=== PATIENT | female | born 1995 | race Caucasian/White ===

== ENCOUNTER 2024-06-15 19:39 | Emergency (ER) | payer OTHER, SELFPAY ==
[2024-06-15 20:28] VITALS: BP 124/75; PULSE 60; RESP 20; TEMP 36.9; O2SAT 99; BMI 30.1
[2024-06-15 20:31] VITALS: BP 111/53; PULSE 59; RESP 19; O2SAT 100
--- NOTE | 2024-06-15 20:31 | PC.NURSE ---
Pt states that she uses [facility] daily. Skin pink warm and dry Resp full and easy Speech clear and appropriate
[2024-06-15 21:15] LABS: Basophils % 0.3 % (0.1-2.0); Eosinophils % 0.5 % (0.1-12.0); Hematocrit 37.8 % (37.0-47.0); Hemoglobin 13.2 g/dL (12.2-16.2); Lymphocytes # 1.9 K/mm3 (0.7-4.5); Lymphocytes % 24.9 % (10-50); Mean Corpuscular HGB Conc 34.9 g/dL (31.8-35.4); Mean Corpuscular Hemoglobin 30.7 pg (27.0-31.2); Mean Corpuscular Volume 87.9 fl (81-99); Monocytes # 0.4 K/mm3 (0.1-1.0); Monocytes % 4.7 % (1.7-9.3); Neutrophils # 5.3 K/mm3 (1.8-7.8); Neutrophils % 69.3 % (37.0-80.0); Platelet Count 308 K/mm3 (142-424); Red Cell Distribution Width 11.5 % (11.5-17.5); White Blood Count 7.6 K/mm3 (4.8-10.8)
[2024-06-15 21:23] LABS: Albumin Level 4.6 g/dl (3.5-5.0); Chloride 101 mmol/L (98-107); Potassium 4.2 mmoL/L (3.5-5.1); Sodium 132 mmol/L (136-145)
[2024-06-15 21:26] LABS: Alanine Aminotransferase 18 U/L (12-78); Albumin/Globulin Ratio 1.9 (1.1-1.8); Alkaline Phosphatase 50 U/L (38-126); Anion Gap 14.2 mEq/L (5-15); Aspartate Amino Transferase 25 U/L (14-36); Bilirubin,Total 0.4 mg/dl (0.2-1.3); Blood Urea Nitrogen 6 mg/dl (7-17); Calcium 9.5 mg/dl (8.4-10.2); Carbon Dioxide 21 mmol/L (22.0-30.0); Creatinine Clearance Estimated 143 mL/min (50-200); Estimated Glomerular Filt Rate 98 ml/min (>60); GFR (African American) 119 ML/MIN (>60); Globulin 2.4 g/dL (1.3-3.2); Glucose 88 mg/dl (74-100)
--- NOTE | 2024-06-15 21:28 | HMH.EDGENADL ---
Discharge Plan Disposition Patient Disposition: Home, Self-Care Referrals Follow up/Referrals: Provider,Referral, MD [Primary Care Provider] - See instructions Activity Restrictions/Add. Instructions Additional Instructions/Restrictions: You were evaluated in the ER and are appropriate for discharge at this time. Please make an appointment with OB for reevaluation on Tuesday or Tuesday. Call [phone] Martinez. Drink plenty of water. Monitor your bleeding. Return to the ER with new, worsening, or otherwise concerning symptoms. Clinical Impressions Clinical Impression: Cyst of right ovary, Intrauterine , Subchorionic bleed Print Language Print Language: Tristanian Discharge ED Provider: Wilfredo Dominguez Adult HPI <Suyapa Moncada ([facility]), DISTILLER - Last Filed: 06/15/24 23:13> General Chief complaint: Vaginal Bleeding Stated complaint: preg-unknown how far along, cramping/bleeding Time Seen by Provider: 06/15/24 20:51 Mode of Arrival: Ambulatory Source of Information: Patient Limitations: No Limitations Description of Symptoms (Recalled from ER Triage Doc. by RN): Pt states she had positive test at home Today began with abdominal cramping and spotting. History of Present Illness HPI narrative: 28-year-old female presents for abdominal cramping, pressure denies tenderness and spotting for 2 days. Patient states she took a test about 2 weeks ago that was positive. Patient's last. Was May 24 and it was regular has not missed any.'s. She has an appointment on the with Dr. Matrinez. Related Data Allergies Allergy/AdvReac Type Severity Reaction Status Date / Time Unable to Assess Allergy Verified 06/07/24 10:21 PFSH <Suyapa Moncada ([facility]), DISTILLER - Last Filed: 06/15/24 23:13> [facility] Disclaimer: The information contained in this section may have been updated after the patient was seen, as this information can be updated by other users. Social History (Updated 06/15/24 @ 23:13 by Suyapa Moncada ([facility]), DISTILLER) Smoking Status: Never smoker alcohol intake: never current occupational status: employed Travel in the last 8 weeks: None Have you lived/traveled outside US in past 30 days?: No Contact w/someone who lives/traveled outside US past 30 days?: No Exposure to someone with infectious disease in past 14 days?: No Do you have a fever (greater than 100.4 F or 38 C)?: No Have you tested positive for COVID-19: No Exposed to someone with COVID-19 in past 14 days?: No Do you have a sore throat?: No Do you have a cough?: No Do you have any weakness?: No Do you have any diarrhea?: No Are you experiencing any unusual bleeding?: No Do you have any muscle aches/pain?: No Do you have any abdominal pain?: Yes Are you experiencing loss of taste or smell?: No <Suyapa Moncada ([facility]), DISTILLER - Last Filed: 06/15/24 23:13> ROS Obtained: Yes Systems reviewed as appropriate & no additional complaints except as documented Physical Exam <Suyapa Moncada ([facility]), DISTILLER - Last Filed: 06/15/24 23:13> General General appearance: alert and in no apparent distress Eye Eye exam: Present normal appearance Respiratory Respiratory exam: Present normal lung sounds bilaterally Cardiovascular Cardiovascular exam: Present regular rate and normal rhythm Abdominal Exam Abdominal exam: Present soft and normal bowel sounds; Absent tenderness Neurological Exam Neurological exam: Present alert and oriented X3 Skin Skin exam: Present warm and intact Medical Decision Making <Suyapa Moncada ([facility]), DISTILLER - Last Filed: 06/15/24 23:13> Medical Records Medical records reviewed: Yes I reviewed the patient's medical records. Screening: Per USPSTF and CDC recommendations, given the prevalence of disease in our region, it is our hospital?s policy to screen for HIV and viral Hepatitis for all patients aged 18 and over and those with ongoing risk factors. Shayan Inquiry Pt receiving controlled substance: No Vital Signs: 06/15/24 20:28 06/15/24 20:31 Temperature 98.4 F Temperature Source Oral Pulse Rate 59 L Pulse Rate [Right Brachial] 60 Respiratory Rate 20 19 Blood Pressure 111/53 L Blood Pressure [Right Arm] 124/75 Blood Pressure Mean [Right Arm] 91 Blood Pressure Source Automatic Cuff Blood Pressure Source [Right Arm] Automatic Cuff Blood Pressure Position Sitting 02 Sat by Pulse Oximetry 99 100 Oxygen Delivery Method Room Air Room Air Lab Data Lab results reviewed: Yes I reviewed the patient's lab results. Lab Results 06/15/24 21:06: WBC 7.6, RBC 4.30, Hgb 13.2, Hct 37.8, MCV 87.9, MCH 30.7, MCHC 34.9, RDW 11.5, Plt Count 308, MPV 9.0, Neut % (Auto) 69.3, Lymph % (Auto) 24.9, [place] % (Auto) 4.7, Eos % (Auto) 0.5, Baso % (Auto) 0.3, Neut # (Auto) 5.3, Lymph # (Auto) 1.9, [place] # (Auto) 0.4, Eos # (Auto) 0.0, Baso # (Auto) 0.0, Sodium 132 L, Potassium 4.2, Chloride 101, Carbon Dioxide 21 L, Anion Gap 14.2, BUN 6 L, Creatinine 0.70, Estimated Creat Clear 143, Estimated GFR 98, Est GFR ( Amer) 119, Glucose 88, Calcium 9.5, Total Bilirubin 0.4, AST 25, ALT 18, Alkaline Phosphatase 50, Total Protein 7.0, Albumin 4.6, Globulin 2.4, Albumin/Globulin Ratio 1.9 H, HCG, Quant [id number] H, Blood Type A Negative 06/16/24 00:05: Urine Color Yellow, Urine Appearance Clear, Urine pH 6.5, Ur Specific [place] 1.010, Urine Protein Negative, Urine Glucose (UA) Negative, Urine Ketones Negative, Urine Blood Negative, Urine Nitrate Negative, Urine Bilirubin Negative, Urine Urobilinogen 0.2, Ur Leukocyte Esterase 1+ A 06/15/24 21:06 06/15/24 21:06 Orders (Tests/Meds): ED MEDICATIONS Discontinued Medications Generic Name Dose Route Start Last Admin Trade Name Freq PRN Reason Stop Dose Admin Rho Immune Globulin 300 mcg 06/15/24 23:08 06/16/24 00:00 Rho(D) Immune Globulin 1,500 Unit (300mcg) Syringe IM 06/15/24 23:09 300 mcg ONCE ONE Administration ORDERS Category Date Time Status ABO/RH Type Stat BBK 06/15/24 21:06 Completed Consult Wheelchair Van Operator First Responder [CONS] Routine Cons 06/15/24 21:44 Active Complete Blood Count Auto Diff Stat Lab 06/15/24 21:06 Completed Comprehensive Metabolic Panel Stat Lab 06/15/24 21:06 Completed HCG,Quantitative Stat Lab 06/15/24 21:06 Completed HIV (1&2) Antibody Rapid Stat Lab 06/15/24 20:31 Ordered Hep C Ab with Reflex to RNA Stat Lab 06/15/24 20:31 Ordered UA [Urinalysis and Microscopic] Stat Lab 06/16/24 00:05 Results Urine Culture Stat Micro 06/16/24 00:05 Received US OB transvaginal Stat Ultrasound 06/15/24 22:15 Completed Medical Decision Narrative: In summary patient is a 28-year-old female who presents to the emergency department for evaluation of abdominal cramping and spotting for 2 days. Patient is hemodynamically stable upon arrival, afebrile. Unremarkable physical exam. Differential diagnosis includes ectopic , spontaneous , threatened miscarriage. Initial workup will be conducted with labs, ultrasound. Initial inventions include labs, ultrasound. Initial workup reviewed by md labs and ultrasound. Viable fetus 7 weeks 5 days.... Upon repeat evaluation [patient had except for resolution of symptoms, had persistent pain for which additional interventions were conducted (describe interventions), tolerated p.o., was ambulatory, etc.]. Given this [patient was appropriate for discharge at this time and will be discharged with a prescription for? This case was discussed with hospital medicine regarding management? They will meet the patient to their service for continued evaluation at this time? Etc.] <Yasmin Pedersen, DO - Last Filed: 06/15/24 23:32> Vital Signs: 06/15/24 20:28 06/15/24 20:31 Temperature 98.4 F Temperature Source Oral Pulse Rate 59 L Pulse Rate [Right Brachial] 60 Respiratory Rate 20 19 Blood Pressure 111/53 L Blood Pressure [Right Arm] 124/75 Blood Pressure Mean [Right Arm] 91 Blood Pressure Source Automatic Cuff Blood Pressure Source [Right Arm] Automatic Cuff Blood Pressure Position Sitting 02 Sat by Pulse Oximetry 99 100 Oxygen Delivery Method Room Air Room Air Lab Data Lab Results 06/15/24 21:06: WBC 7.6, RBC 4.30, Hgb 13.2, Hct 37.8, MCV 87.9, MCH 30.7, MCHC 34.9, RDW 11.5, Plt Count 308, MPV 9.0, Neut % (Auto) 69.3, Lymph % (Auto) 24.9, [place] % (Auto) 4.7, Eos % (Auto) 0.5, Baso % (Auto) 0.3, Neut # (Auto) 5.3, Lymph # (Auto) 1.9, [place] # (Auto) 0.4, Eos # (Auto) 0.0, Baso # (Auto) 0.0, Sodium 132 L, Potassium 4.2, Chloride 101, Carbon Dioxide 21 L, Anion Gap 14.2, BUN 6 L, Creatinine 0.70, Estimated Creat Clear 143, Estimated GFR 98, Est GFR ( Amer) 119, Glucose 88, Calcium 9.5, Total Bilirubin 0.4, AST 25, ALT 18, Alkaline Phosphatase 50, Total Protein 7.0, Albumin 4.6, Globulin 2.4, Albumin/Globulin Ratio 1.9 H, HCG, Quant [id number] H, Blood Type A Negative 06/16/24 00:05: Urine Color Yellow, Urine Appearance Clear, Urine pH 6.5, Ur Specific [place] 1.010, Urine Protein Negative, Urine Glucose (UA) Negative, Urine Ketones Negative, Urine Blood Negative, Urine Nitrate Negative, Urine Bilirubin Negative, Urine Urobilinogen 0.2, Ur Leukocyte Esterase 1+ A Orders (Tests/Meds): ED MEDICATIONS Discontinued Medications Generic Name Dose Route Start Last Admin Trade Name Freq PRN Reason Stop Dose Admin Rho Immune Globulin 300 mcg 06/15/24 23:08 06/16/24 00:00 Rho(D) Immune Globulin 1,500 Unit (300mcg) Syringe IM 06/15/24 23:09 300 mcg ONCE ONE Administration ORDERS Category Date Time Status ABO/RH Type Stat BBK 06/15/24 21:06 Completed Consult Wheelchair Van Operator First Responder [CONS] Routine Cons 06/15/24 21:44 Active Complete Blood Count Auto Diff Stat Lab 06/15/24 21:06 Completed Comprehensive Metabolic Panel Stat Lab 06/15/24 21:06 Completed HCG,Quantitative Stat Lab 06/15/24 21:06 Completed HIV (1&2) Antibody Rapid Stat Lab 06/15/24 20:31 Ordered Hep C Ab with Reflex to RNA Stat Lab 06/15/24 20:31 Ordered UA [Urinalysis and Microscopic] Stat Lab 06/16/24 00:05 Results Urine Culture Stat Micro 06/16/24 00:05 Received US OB transvaginal Stat Ultrasound 06/15/24 22:15 Completed Medical Decision Narrative: In summary patient is a 28-year-old female who presents to the emergency department for evaluation of abdominal cramping and spotting for 2 days. Patient is hemodynamically stable upon arrival, afebrile. Unremarkable physical exam. Differential diagnosis includes ectopic , spontaneous , threatened miscarriage. Initial workup will be conducted with labs, ultrasound. Initial inventions include labs, ultrasound. Initial workup reviewed by me labs and ultrasound. Viable fetus 7 weeks 5 days with large right ovarian cyst. DO Slava: I was consulted by the CRISTOPHER, and we discussed the complexity of the problems being addressed. I approved the treatment and management plan for this patient's care in the emergency department, thus performing a substantive portion of the medical decision making. Patient's hCG is significantly elevated. She has a viable IUP at 7 weeks with a large right ovarian cyst. I feel that this hCG is relatively high for 7-week , so I am awaiting full final radiology read of the ultrasound to rule out heterotopic . Patient care signed out to the oncoming provider, Dr. Dominguez, pending read and UA. RhoGAM given prior to transfer of care given a negative blood type Yasmin Pedersen DO <Wilfredo Dominguez MD - Last Filed: 06/16/24 00:40> Vital Signs: 06/15/24 20:28 06/15/24 20:31 Temperature 98.4 F Temperature Source Oral Pulse Rate 59 L Pulse Rate [Right Brachial] 60 Respiratory Rate 20 19 Blood Pressure 111/53 L Blood Pressure [Right Arm] 124/75 Blood Pressure Mean [Right Arm] 91 Blood Pressure Source Automatic Cuff Blood Pressure Source [Right Arm] Automatic Cuff Blood Pressure Position Sitting 02 Sat by Pulse Oximetry 99 100 Oxygen Delivery Method Room Air Room Air Lab Data Lab Results 06/15/24 21:06: WBC 7.6, RBC 4.30, Hgb 13.2, Hct 37.8, MCV 87.9, MCH 30.7, MCHC 34.9, RDW 11.5, Plt Count 308, MPV 9.0, Neut % (Auto) 69.3, Lymph % (Auto) 24.9, [place] % (Auto) 4.7, Eos % (Auto) 0.5, Baso % (Auto) 0.3, Neut # (Auto) 5.3, Lymph # (Auto) 1.9, [place] # (Auto) 0.4, Eos # (Auto) 0.0, Baso # (Auto) 0.0, Sodium 132 L, Potassium 4.2, Chloride 101, Carbon Dioxide 21 L, Anion Gap 14.2, BUN 6 L, Creatinine 0.70, Estimated Creat Clear 143, Estimated GFR 98, Est GFR ( Amer) 119, Glucose 88, Calcium 9.5, Total Bilirubin 0.4, AST 25, ALT 18, Alkaline Phosphatase 50, Total Protein 7.0, Albumin 4.6, Globulin 2.4, Albumin/Globulin Ratio 1.9 H, HCG, Quant [id number] H, Blood Type A Negative 06/16/24 00:05: Urine Color Yellow, Urine Appearance Clear, Urine pH 6.5, Ur Specific [place] 1.010, Urine Protein Negative, Urine Glucose (UA) Negative, Urine Ketones Negative, Urine Blood Negative, Urine Nitrate Negative, Urine Bilirubin Negative, Urine Urobilinogen 0.2, Ur Leukocyte Esterase 1+ A Orders (Tests/Meds): ED MEDICATIONS Discontinued Medications Generic Name Dose Route Start Last Admin Trade Name Freq PRN Reason Stop Dose Admin Rho Immune Globulin 300 mcg 06/15/24 23:08 06/16/24 00:00 Rho(D) Immune Globulin 1,500 Unit (300mcg) Syringe IM 06/15/24 23:09 300 mcg ONCE ONE Administration ORDERS Category Date Time Status ABO/RH Type Stat BBK 06/15/24 21:06 Completed Consult Wheelchair Van Operator First Responder [CONS] Routine Cons 06/15/24 21:44 Active Complete Blood Count Auto Diff Stat Lab 06/15/24 21:06 Completed Comprehensive Metabolic Panel Stat Lab 06/15/24 21:06 Completed HCG,Quantitative Stat Lab 06/15/24 21:06 Completed HIV (1&2) Antibody Rapid Stat Lab 06/15/24 20:31 Ordered Hep C Ab with Reflex to RNA Stat Lab 06/15/24 20:31 Ordered UA [Urinalysis and Microscopic] Stat Lab 06/16/24 00:05 Results Urine Culture Stat Micro 06/16/24 00:05 Received US OB transvaginal Stat Ultrasound 06/15/24 22:15 Completed Medical Decision Narrative: In summary patient is a 28-year-old female who presents to the emergency department for evaluation of abdominal cramping and spotting for 2 days. Patient is hemodynamically stable upon arrival, afebrile. Unremarkable physical exam. Differential diagnosis includes ectopic , spontaneous , threatened miscarriage. Initial workup will be conducted with labs, ultrasound. Initial inventions include labs, ultrasound. Initial workup reviewed by me labs and ultrasound. Viable fetus 7 weeks 5 days with large right ovarian cyst. DO Slava: I was consulted by the CRISTOPHER, and we discussed the complexity of the problems being addressed. I approved the treatment and management plan for this patient's care in the emergency department, thus performing a substantive portion of the medical decision making. Patient's hCG is significantly elevated. She has a viable IUP at 7 weeks with a large right ovarian cyst. I feel that this hCG is relatively high for 7-week , so I am awaiting full final radiology read of the ultrasound to rule out heterotopic . Patient care signed out to the oncoming provider, Dr. Dominguez, pending read and UA. RhoGAM given prior to transfer of care given a negative blood type Yasmin DO Alberto Pedersen: Upon my assumption of care patient is stable, resting comfortably, only mild spotting. Transvaginal ultrasound resulted with radiology read reporting 7-week 5-day live intrauterine , right ovarian cyst with septations, small subchorionic bleed. These findings correlate with patient's symptoms. Notably, no heterotopic . She has an appointment with Dr. Martinez on June 29, I instructed her to follow-up more closely and call the office for an appointment as soon as possible. Patient was given instructions on symptomatic management, follow up instructions, and return precautions for the emergency department. Patient indicated understanding and was discharged in stable condition. Critical Care <Suyapa Moncada ([facility]), DISTILLER - Last Filed: 06/15/24 23:13> Critical Care Time Critical Care Time: No
[2024-06-15 22:08] LABS: HCG,Quantitative 128630 mIU/ml (0-5.42)
--- NOTE | 2024-06-15 22:14 | PC.NURSE ---
Ultrasound called in for transvaginal ultrasound
--- NOTE | 2024-06-15 22:15 | US_ITS ---
PROCEDURE INFORMATION: Exam: US , Transvaginal Exam date and time: 06/15/2024 10:24 PM Age: 28 years old Clinical indication: Pain; Gestational age or lmp: 7 weeks 5 days; ; Additional info: Pelvic pain TECHNIQUE: Imaging protocol: Real-time transvaginal obstetrical ultrasound of the maternal pelvis with image documentation. Transvaginal imaging was used for better evaluation of the fetus, adnexa, and/or cervix. COMPARISON: No relevant prior studies available. FINDINGS: Gestation: Single intrauterine gestation. Yolk sac measures 0.43 cm. pole with a crown-rump length of 1.3 cm. heart rate: 153 bpm Placenta: Possible small subchorionic bleed. BIOMETRY: Gestational age (AUA): 7 weeks 5 days. MATERNAL: Right ovary/adnexa: 2 cm cyst containing a few thin septations. Vascular flow present. No adnexal mass. Left ovary/adnexa: Unremarkable. Vascular flow present. No adnexal mass. IMPRESSION: 1. Single live intrauterine gestation measuring 7 weeks 5 days. 2. Possible small subchorionic bleed. 3. 2 cm right ovarian cyst containing a few thin septations.
--- NOTE | 2024-06-15 22:27 | PC.NURSE ---
Pt to ultrasound via wheelchair
--- NOTE | 2024-06-15 22:52 | PEERSUPPORT ---
Peer Support Note Patient Information Patient Information: DOS: 06/15/2024 ? Reason: RILEY/ED Ps Consult Ps met with patient privately in triage room. Pt is receptive and comfortable to share she is presenting to ED with cramping, scared that due to her using kratom. She read while researching one of main side effects to kratom use is miscarriage if . ? Drug(s) of Choice: Kratom, powder form, drinking or capsules ? Last Use:06/14/2024 @ 8:00 pm ? 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 -Pt stated she would have never started it had she known she would become dependent on it, that led to having withdrawals like she is today. ? Previous MAT/MOUD:NONE ? Current MAT/MOUD:NONE ? Desire for MAT/MOUD: Interested in [facility] for specialized treatment of RILEY. Patient is interested in injectable form buprenorphine or naltrexone to help with cravings. She does not feel she is able to manage the withdrawals without at this time. ? Previous Treatment: NONE ? Longest Length of Sobriety: Never used prior to three years ago. ? Support System: ?Significant other Recovery groups online. Potential Barriers: -Management of withdrawals- stress of worrying that her use of kratom has affected her fetus. -She is scared she is having miscarriage with the cramping. ? Harm reduction: -Pt agrees to follow up phone calls by peer support for support focusing on recovery. -Referral to [facility] for continued treatment for RILEY. -Discussion of medication options for MAT. -Patient is actively self-educating for better understanding of process of RILEY with managing withdrawal. -Patient to continue with connection support groups for recovery support. ? Motivation for Change: Patient is highly motivated to seek treatment and open to participating in MAT outpatient clinic. She says she is head strong and always have been, just having a hard time with the withdrawals of not using Kratom. She does feel she needs something to help her so accepting of referral to [facility]. ? Plan of Action: Referral to [facility] MAT outpatient clinic. Follow up phone calls with [facility] peer support. Discuss with physician medication options to help with withdrawals of opiates. ?
[2024-06-16] MEDS: RHO(D) IMMUNE GLOBULIN 1,500 UNIT (300MCG) SYRINGE 300 MCG IM
--- NOTE | 2024-06-16 00:09 | PC.NURSE ---
urine collected and sent to lab
[2024-06-16 00:13] LABS: Microscopic, Urine URINE MICROSCOPIC (MICROSCOPIC)
[2024-06-16 00:21] LABS: Appearance,Urine CLEAR (Clear); Bilirubin,Urine Negative (Negative); Blood, Urine Negative (Negative); Color,Urine YELLOW (Yellow); Glucose,Urine (UA) Negative (Negative); Ketones,Urine Negative (Negative); Leukocyte Esterase,Urine 1+ (Negative); Nitrate,Urine Negative (Negative); PH,Urine 6.5 (5.0-8.5); Protein,Urine Negative (Negative); Urobilinogen,Urine 0.2 EU/dl (0.2)
[2024-06-16 00:39] VITALS: BP 120/66; PULSE 55; RESP 18; TEMP 36.9; O2SAT 100
[2024-06-16 00:49] LABS: Bacteria,Urine 3+ /lpf
--- NOTE | 2024-06-17 09:40 | PC.NURSE ---
DISCUSSED URINE CULTURE WITH DR BHARDWAJ, NEW ORDERS GIVEN. SPOKE WITH PT INFORMED OF ABX GIVEN. CONFIRMED PHARMACY AND INSTRUCTED PT TO CALL OB IN THE AM AND MAKE APPT FOR FOLLOW-UP
== END 2024-06-16 00:44 | disposition home or self-care (01) ==
PROVIDERS: Emergency Medicine; Emergency Provider Emergency Medicine
DX: O99.891 Other specified diseases and conditions complicating pregnancy (principal); O46.8X9 Other antepartum hemorrhage, unspecified trimester; N83.201 Unspecified ovarian cyst, right side; R10.9 Unspecified abdominal pain; N93.8 Other specified abnormal uterine and vaginal bleeding
CPT/HCPCS: 76817; 80053; 81001; 84702; 85025; 86900; 86901; 87086; 87088; 87186; 96372; 99283; J2790

== ENCOUNTER 2024-07-05 10:28 | Outpatient (CLI) | payer OTHER, SELFPAY ==
[2024-07-05 10:52] LABS: Basophils % 0.6 % (0.1-2.0); Eosinophils % 0.6 % (0.1-12.0); Hematocrit 33.6 % (37.0-47.0); Hemoglobin 11.8 g/dL (12.2-16.2); Lymphocytes # 1.8 K/mm3 (0.7-4.5); Lymphocytes % 32.9 % (10-50); Mean Corpuscular HGB Conc 35.1 g/dL (31.8-35.4); Mean Corpuscular Hemoglobin 30.7 pg (27.0-31.2); Mean Corpuscular Volume 87.5 fl (81-99); Mean Platelet Volume 9.5 fl (7.4-10.4); Monocytes # 0.2 K/mm3 (0.1-1.0); Monocytes % 4.5 % (1.7-9.3); Neutrophils # 3.3 K/mm3 (1.8-7.8); Neutrophils % 61.2 % (37.0-80.0); Platelet Count 260 K/mm3 (142-424); Red Blood Count 3.84 M/mm3 (4.20-5.40); Red Cell Distribution Width 11.9 % (11.5-17.5); White Blood Count 5.4 K/mm3 (4.8-10.8)
[2024-07-05 12:03] LABS: HIV Combo NEGATIVE (Negative)
[2024-07-05 12:10] LABS: Hepatitis C Ab Qual. W/ RFX NEGATIVE (Negative)
[2024-07-05 15:49] LABS: RPR W/RFX Titers Nonreactive (Nonreactive)
[2024-07-06 08:27] LABS: Hepatitis B Surface Antigen Negative (Negative)
[2024-07-06 09:11] LABS: Rubella Antibodies, IgG 2.18 index (Immune >0.99)
== END 2024-07-05 23:59 | disposition home or self-care (01) ==
PROVIDERS: Visit Provider Obstetrics & Gynecology
DX: Z34.81 Encounter for supervision of other normal pregnancy, first trimester (principal)
CPT/HCPCS: 36415; 85025; 86592; 86762; 86803; 86850; 86870; 87086; 87088; 87186; 87340; 87389

== ENCOUNTER 2024-09-14 15:10 | Outpatient (CLI) | payer OTHER, SELFPAY ==
--- NOTE | 2024-09-14 15:13 | US_ITS ---
PROCEDURE: US OB /MATERNAL DETAIL CLINICAL INDICATION: screening for anatomy and malformations COMPARISON: US US OB TRANSVAGINAL from 06/15/2024 FINDINGS: Transabdominal sonographic images of the pelvis were obtained. From her established due date she is 20 weeks 3 days. Single viable intrauterine gestation. Breech position. Placenta: Anteriorplacenta grade 1. Placenta is low lying and measures 2.14 cm from the internal cervical os. Suggest repeat scan at 28 weeks to look at the low lying placenta. Consider transvaginal ultrasound as well. There is an average amount of fluid. The cervix appears satisfactory. Closed and measuring 2.84 cm in length. Complete survey performed and was unremarkable on the submitted images as in PACS. No discrete anomalies identified on survey imaging by technologist. Active fetus. Three-vessel cord with satisfactory umbilical cord insertion. 4- chamber heart not well visualized. Situs, aortic arch, LVOT, RVOT, three-vessel view appear normal. Survey of brain & ventricles Unremarkable. Cerebellum, thalamus, choroid plexus, cisterna magna appear normal. Face and neck survey unremarkable. Profile, nasion, lips and nose appeared normal. Diaphragm and chest views unremarkable. Abdomen: Kidneys not well visualized today. Stomach and bladder noted and satisfactory. Spine: Survey of the spine satisfactory with no anomalies identified nor imaged. Cervical, thoracic, lower spine appear normal. Both arms and legs noted. Amniotic Fluid: Adequate. MVP 6.77 cm. Measurements: Average ultrasound age 20weeks 3days. Estimated due date by ultrasound age 0801/29/2025. Estimated weight 362g BPD = 20weeks 5days HC = 19weeks 4days AC = 20weeks 6days FL = 20weeks 4days Growth Percentile= 53 Heart Rate = 152bpm Cerebellum = 20weeks 3days Humerus = 21weeks 1day HC/AC is 1.09 FL/BPD is 0.7 FL/AC is 0.22 IMPRESSION: 1. Viable fetus in the breech presentation with an anterior low-lying placenta. The placenta measures 2.14 cm from the internal os. Suggest repeat scan at 28 weeks. Consider transvaginal ultrasound at that time as well. 2. The fluid is within normal limits with an MVP 6.77 cm. 3. Four-chamber heart views and kidneys were not well visualized today secondary to position. Suggest repeat scan in 2-3 weeks. 4. The rest of the anatomical scan appears normal. 5. biometry is consistent with the dates. Dictated by: Gunnar Reece MD 09/14/2024 17:41 Gunnar Reece MD in [place] 09/14/2024 17:41
== END 2024-09-14 23:59 | disposition home or self-care (01) ==
LOC: RAD 15:10
PROVIDERS: Visit Provider Obstetrics & Gynecology
DX: Z36.3 Encounter for antenatal screening for malformations (principal); Z3A.20 20 weeks gestation of pregnancy
CPT/HCPCS: 76811

== ENCOUNTER 2024-10-02 16:37 | Outpatient (CLI) | payer OTHER, SELFPAY ==
[2024-10-02 19:33] LABS: Free T4 (Free Thyroxine) 0.97 ng/dl (0.78-2.19)
[2024-10-02 19:41] LABS: Thyroid Stimulating Hormone 0.87 uIU/mL (0.465-4.68)
[2024-10-04 03:36] LABS: Triiodothyronine (T3) Total 196 ng/dL (71-180)
== END 2024-10-02 23:59 | disposition home or self-care (01) ==
LOC: LAB 16:38
PROVIDERS: Visit Provider Obstetrics & Gynecology
DX: K59.01 Slow transit constipation (principal); R79.89 Other specified abnormal findings of blood chemistry; O99.212 Obesity complicating pregnancy, second trimester; Z3A.23 23 weeks gestation of pregnancy; E66.9 Obesity, unspecified
CPT/HCPCS: 36415; 84439; 84443; 84480

== ENCOUNTER 2024-10-17 15:15 | Outpatient (CLI) | payer OTHER, SELFPAY ==
--- NOTE | 2024-10-17 15:15 | US_ITS ---
PROCEDURE: US OB FOLLOW UP CLINICAL INDICATION: 4 week follow up on heart and kidneys COMPARISON: US US OB TRANSVAGINAL from 06/15/2024 US US OB /MATERNAL DETAIL from 09/14/2024 FINDINGS: Transabdominal sonographic images of the pelvis were obtained. The following parameters are obtained: From her established due date she is 25weeks 1day Viable fetus in the cephalic presentation with an anterior placenta grade 1. The placenta continues to be low lying measuring 2.37 cm from the internal cervical os. This was seen transabdominally and would suggest a transvaginal view at the next ultrasound. The cervix measures 3.08 cm heart rate: 139bpm bpm. Amniotic fluid: MVP 6.41 cm. No obvious anomalies evident. profile seen, stomach, bladder, kidneys, three-vessel cord, four chamber heart appear normal. kidneys: There is mild unilateral renal pelvis dilation measuring 4.6 mm. heart: [place], LVOT, RVOT, three-vessel view, four-chamber heart appear normal. IMPRESSION: 1. Viable fetus in the cephalic presentation with anterior placenta grade 1. The placenta continues to be low lying currently measuring 2.37 cm from the internal cervical os. At the next ultrasound would suggest a transvaginal view to get a better view of the distance from the internal os. 2. The fluid is within normal limits with an MVP 6.41 cm. 3. kidneys and heart anatomy appear normal. There is mild renal pelvis dilation measuring 4.6 mm and suggest repeat scan in 4 weeks time. 4. The rest of the limited anatomical scan appears normal. Dictated by: Gunnar Reece MD 10/18/2024 13:44 Gunnar Reece MD in [facility] 10/18/2024 13:44
== END 2024-10-17 23:59 | disposition home or self-care (01) ==
LOC: RAD 15:16
PROVIDERS: PCP Obstetrics & Gynecology; Visit Provider Obstetrics & Gynecology
DX: Z36.2 Encounter for other antenatal screening follow-up (principal); O99.212 Obesity complicating pregnancy, second trimester; O99.322 Drug use complicating pregnancy, second trimester; F11.20 Opioid dependence, uncomplicated; Z3A.25 25 weeks gestation of pregnancy
CPT/HCPCS: 76816

== ENCOUNTER 2024-11-05 15:15 | Outpatient (CLI) | payer OTHER, SELFPAY ==
--- NOTE | 2024-11-05 15:15 | US_ITS ---
PROCEDURE: US OB FOLLOW UP CLINICAL INDICATION: 28 week follow up Growth - Transvaginal COMPARISON: US US OB TRANSVAGINAL from 06/15/2024 US US OB /MATERNAL DETAIL from 09/14/2024 US US OB FOLLOW UP from 10/17/2024 US US OB TRANSVAGINAL from 11/05/2024 FINDINGS: Transabdominal sonographic images of the pelvis were obtained. The following parameters are obtained: From her established due date she is 27weeks 6days Viable fetus in the cephalic presentation with an anterior placenta grade 1. heart rate: 138bpm bpm. Average ultrasound age 28 weeks 3 days Estimated weight 1214 grams, 2 lb 11 oz BPD: 28weeks 3days, 54 percentile HC: 28weeks 2days, 29 percentile AC: 28weeks 5days, 65 percentile FL: 28weeks 1day, 40 percentile HC/AC: 1.06 FL/BPD: 0.75 FL/AC: 0.22 Growth percentile: 57 Amniotic fluid: MVP 7.14 cm No obvious anomalies evident. profile seen, stomach, bladder, kidneys, three-vessel cord, four chamber heart appear normal. IMPRESSION: 1. Viable fetus in the cephalic presentation with an anterior placenta grade 1. 2. Transvaginally the cervix was measured in a previous ultrasound today and appears normal. It was 2.20-2.83 cm in length. 3. The placenta is no longer low lying. 4. The fluid is within normal limits with an MVP 7.14 cm. 5. There has been good interval growth with the fetus currently 57th percentile. 6. Limited anatomical scan appears normal. Dictated by: Gunnar Reece MD 11/05/2024 18:05 Gunnar Reece MD in [facility] 11/05/2024 18:05
--- NOTE | 2024-11-05 15:31 | US_ITS ---
PROCEDURE: US OB TRANSVAGINAL CLINICAL INDICATION: Low Lying Placenta COMPARISON: US US OB TRANSVAGINAL from 06/15/2024 US US OB /MATERNAL DETAIL from 09/14/2024 US US OB FOLLOW UP from 10/17/2024 FINDINGS: Transvaginal sonographic images of the pelvis were obtained. From her last menstrual period she is 27weeks 6days. Fetus is in the cephalic presentation. Placenta is anterior. Transvaginal images of the cervix were obtained. The cervix measures 2.20-2.83 cm in length. There is no funneling seen. The placenta measures 4.39 cm away from the internal cervical os. IMPRESSION: 1. Fetus in the cephalic presentation with an anterior placenta. 2. The cervix is measured 2.2 cm-2.83 cm. There is no funneling of the cervix. 3. Placenta is no longer low lying and measures 4.39 cm away from the internal cervical os. Dictated by: Gunnar Reece MD 11/05/2024 17:58 Gunnar Reece MD in [facility] 11/05/2024 17:58
== END 2024-11-05 23:59 | disposition home or self-care (01) ==
LOC: RAD 15:16
PROVIDERS: PCP Obstetrics & Gynecology; Visit Provider Obstetrics & Gynecology
DX: O99.213 Obesity complicating pregnancy, third trimester (principal); O99.323 Drug use complicating pregnancy, third trimester; E66.9 Obesity, unspecified; F11.20 Opioid dependence, uncomplicated; Z3A.27 27 weeks gestation of pregnancy
CPT/HCPCS: 76816; 76817

== ENCOUNTER 2024-11-26 10:23 | Outpatient (CLI) | payer OTHER, SELFPAY ==
[2024-11-26 10:49] LABS: Basophils % 0.4 % (0.1-2.0); Eosinophils # 0.1 Kmm3 (0.0-0.4); Hematocrit 31.4 % (37.0-47.0); Hemoglobin 10.8 g/dL (12.2-16.2); Immature Granulocytes # 0.02 10^3uL; Immature Granulocytes % 0.2 %; Lymphocytes # 2.1 K/mm3 (0.7-4.5); Lymphocytes % 25.7 % (10-50); Mean Corpuscular HGB Conc 34.4 g/dL (31.8-35.4); Mean Corpuscular Hemoglobin 30.9 pg (27.0-31.2); Mean Corpuscular Volume 89.7 fl (81-99); Mean Platelet Volume 9.5 fl (7.4-10.4); Monocytes # 0.5 K/mm3 (0.1-1.0); Monocytes % 5.8 % (1.7-9.3); Neutrophils # 5.6 K/mm3 (1.8-7.8); Neutrophils % 66.9 % (37.0-80.0); Nucleated Red Blood Cells # 0 10^3/uL; Nucleated Red Blood Cells % 0 %; Platelet Count 260 K/mm3 (142-424); Red Cell Distribution Width 12.3 % (11.5-17.5); Red Cell Distribution Width-SD 40.5 fL; White Blood Count 8.3 K/mm3 (4.8-10.8)
[2024-11-26] MEDS: RHO(D) IMMUNE GLOBULIN 1,500 UNIT (300MCG) SYRINGE 300 MCG IM (11:42)
[2024-11-26 11:45] VITALS: BP 122/62; PULSE 83; RESP 18; TEMP 36.8; O2SAT 100
[2024-11-26 12:03] LABS: Glucose 1 Hour 96 mg/dL (74-100)
[2024-11-26 15:21] LABS: RPR W/RFX Titers Nonreactive (Nonreactive)
== END 2024-11-26 11:50 | disposition home or self-care (01) ==
PROVIDERS: Visit Provider Obstetrics & Gynecology
DX: O99.320 Drug use complicating pregnancy, unspecified trimester (principal); F11.20 Opioid dependence, uncomplicated
CPT/HCPCS: 36415; 82947; 85025; 86592; 96372; J2790

== ENCOUNTER 2024-11-29 16:17 | Outpatient (CLI) | payer OTHER, SELFPAY | END 2024-11-29 23:59 | disposition home or self-care (01) | LOC: LAB.DROPOF 16:18 | PROVIDERS: PCP Obstetrics & Gynecology; Visit Provider Obstetrics & Gynecology | DX: N39.0 Urinary tract infection, site not specified (principal) | CPT/HCPCS: 87086 ==

== ENCOUNTER 2024-12-27 14:09 | Outpatient (CLI) | payer OTHER, SELFPAY ==
--- NOTE | 2024-12-27 14:00 | US_ITS ---
PROCEDURE: US OB BIOPHYSICAL PROFILE CLINICAL INDICATION: Needs 12/27/24 around @2:30 COMPARISON: US US OB TRANSVAGINAL from 06/15/2024 US US OB /MATERNAL DETAIL from 09/14/2024 US OB FOLLOW UP from 10/17/2024 US OB TRANSVAGINAL from 11/05/2024 US OB FOLLOW UP from 11/05/2024 FINDINGS: Transabdominal sonographic images of the uterus were obtained. From her established due date she is 35weeks 2days. The following parameters are obtained: Viable Fetus in the cephalic presentation with an anterior placenta grade 2. Average ultrasound age is 35weeks 2days Estimated weight 2,670g The cervix measures 3.47 cm Measurements: heart Rate = 149bpm Average ultrasound age 35 weeks 2 days Estimated weight 2670 grams, 5 lb 14 oz BPD = 34weeks 1day, 22 percentile HC = 35weeks 4days, 22 percent AC = 35weeks 3days, 61 percent FL = 36weeks 0 days, 60 percentile HC/AC is 1 FL/BPD is 0.83 FL/AC is 0.22 51 percentile Amniotic fluid index: 15.77cm, MVP 5.50 cm Qualitative AFV:2 Breathing movements: 2 Gross Body Movements: 2 Tone: 2 Biophysical profile score: 8 No obvious anomalies evident.Kidneys, profile, stomach, bladder, four-chamber heart, three-vessel cord appear normal. IMPRESSION: 1. Viable fetus in the cephalic presentation with an anterior placenta grade 2. 2. Fluid is within normal limits with an amniotic fluid index 15.77 cm, MVP 5.50 cm 3. Biophysical profile is 8/8 with good breathing movement and movement seen. 4. There has been good interval growth with the fetus currently 51st percentile. 5. Limited anatomical scan appears normal. Dictated by: Gunnar Reece MD 12/27/2024 15:11 Gunnar Reece MD in [facility] 12/27/2024 15:11
== END 2024-12-27 23:59 | disposition home or self-care (01) ==
LOC: RAD 14:09
PROVIDERS: Visit Provider Obstetrics & Gynecology
DX: O99.213 Obesity complicating pregnancy, third trimester (principal); O99.323 Drug use complicating pregnancy, third trimester; O99.891 Other specified diseases and conditions complicating pregnancy; E66.9 Obesity, unspecified; F11.20 Opioid dependence, uncomplicated; R82.71 Bacteriuria; Z3A.35 35 weeks gestation of pregnancy
CPT/HCPCS: 76816; 76819; 86403

== ENCOUNTER 2025-01-25 04:15 | Inpatient (IN) | payer OTHER, SELFPAY ==
[2025-01-25 05:00] VITALS: BP 135/73; PULSE 77; RESP 18; TEMP 36.8; O2SAT 98; BMI 35.9
[2025-01-25 05:50] VITALS: BMI 35.9
[2025-01-25 06:15] LABS: Hematocrit 34.0 % (37.0-47.0); Hemoglobin 11.4 g/dL (12.2-16.2); Immature Granulocytes % 0.4 %; Mean Corpuscular HGB Conc 33.5 g/dL (31.8-35.4); Mean Corpuscular Hemoglobin 29.2 pg (27.0-31.2); Mean Corpuscular Volume 87.2 fl (81-99); Nucleated Red Blood Cells % 0 %; Platelet Count 293 K/mm3 (142-424); Red Blood Count 3.90 M/mm3 (4.20-5.40); Red Cell Distribution Width-SD 41.5 fL; White Blood Count 10.9 K/mm3 (4.8-10.8)
[2025-01-25] MEDS: OXYTOCIN/RINGERS LACTATE 30 UNITS/500 ML BAG IV (06:33)
[2025-01-25 06:59] LABS: RPR W/RFX Titers Nonreactive (Nonreactive)
[2025-01-25 07:18] VITALS: BP 129/66; PULSE 72; RESP 18; TEMP 36.8
--- NOTE | 2025-01-25 08:37 | HMH.PHAINT1 ---
Pharmacy Intervention Comments: MEDICATION RECONCILIATION COMPLETED ON PATIENT USING EXTERNAL FILL HISTORY FROM PHARMACY AND [facility] REPORT. -ELSA ERVIN, KENNYD
--- NOTE | 2025-01-25 08:59 | P.HP_ITS ---
History of Present Illness *Admission Date: 01/25/25 *Reason for visit:: Induction *History of present illness: Prudence Segal is a pleasant 29yo at 39 weeks and 3 days gestation who presented to labor and delivery for scheduled induction of labor. Her has been complicated by suboxone use. On presentation patient endorsed good movement and denies any leakage of fluid or vaginal bleeding. A-, antibody positive: pending, rubella immune, hepatitis B negative, hepatitis C negative, RPR negative, HIV negative 1 hour GTT: 96 GBS negative PFSH PFS Disclaimer: The information contained in this section may have been updated after the patient was seen, as this information can be updated by other users. Medical History Obesity affecting Suboxone maintenance treatment complicating , antepartum Surgical History No significant past surgical history Family History Other No significant family history Social History (Updated 01/25/25 @ 08:04 by Koki Haney RN) Smoking Status: Never smoker alcohol intake: never current occupational status: unemployed Travel in the last 8 weeks?: None Have you lived/traveled outside US in past 30 days?: No Contact w/someone who lives/traveled outside US past 30 days?: No Exposure to someone with infectious disease in past 14 days?: No Do you have a fever (greater than 100.4 F or 38 C)?: No Have you tested positive for COVID-19?: No Exposed to someone with COVID-19 in past 14 days?: No Do you have a sore throat?: No Do you have a cough?: No Do you have any weakness?: No Are you experiencing any nausea/vomitting?: No Do you have any diarrhea?: No Are you experiencing any unusual bleeding?: No Do you have any muscle aches/pain?: No Do you have any abdominal pain?: No Are you experiencing loss of taste or smell?: No Other Medical History Have you received the Flu Vaccine for this season: No Have you received the Pneumonia Vaccine: No Review of Systems Review of Systems Review of systems (narrative): Review of Systems Constitutional: Denies fever, chills, and sweats Eyes: Denies vision change/ pain Respiratory: Denies cough and shortness of breath Cardiovascular: Denies chest pain and lightheadedness Gastrointestinal: Admits abdominal pain with contractions. Denies nausea, vomiting. Genitourinary: Denies dysuria and incontinence Musculoskeletal: Denies shoulder pain and back pain Neurological: Denies change in speech or headaches Meds Home Medications and Allergies Home Medications ?Medication ?Instructions ?Recorded ?Confirmed ?Type vits no.126-ferrous fum 1 tab PO DAILY 01/25/25 History 28 mg iron-folic acid 800 mcg tablet (Classic ) buprenorphine 8 mg-naloxone 2 mg 1.5 tab sublingual DA PATITO 10/31/24 01/25/25 History sublingual tablet ferrous sulfate 325 mg (65 mg 325 mg PO DAILY #30 tabs 11/27/24 01/25/25 Rx iron) tablet New Prescriptions to Start Prescriptions: Allergies Allergy/AdvReac Type Severity Reaction Status Date / Time Penicillins Allergy Intermediate Rash Verified 01/17/25 11:44 Exam Data for Last 24 hours Vital signs and Labs for Last 24 Hours: Temp Pulse Resp BP Pulse Ox O2 Del Method 98.2 F 72 18 129/66 98 Room Air 01/25/25 07:18 01/25/25 07:18 01/25/25 07:18 01/25/25 07:18 01/25/25 05:00 01/25/25 05:00 Laboratory Results - last 24 hr 01/25/25 04:59: WBC 10.9 H, RBC 3.90 L, Hgb 11.4 L, Hct 34.0 L, MCV 87.2, MCH 29.2, MCHC 33.5, RDW 13.2, Plt Count 293, MPV 10.3, Neut % (Auto) 72.7, Lymph % (Auto) 20.8, [place] % (Auto) 5.4, Eos % (Auto) 0.4, Baso % (Auto) 0.3, Neut # (Auto) 8.0 H, Lymph # (Auto) 2.3, [place] # (Auto) 0.6, Eos # (Auto) 0.0, Baso # (Auto) 0.0, RPR w/Rflx to Titer Nonreactive, Blood Type A Negative, Antibody Screen Positive I & O for Last 24 hours: Intake & Output 01/22/25 01/23/25 01/24/25 01/25/25 23:59 23:59 23:59 23:59 Weight 203 lb Narrative: General: patient is alert oriented in no acute distress and responds appropriately to questions. HEENT: NCAT, EOMI, moist mucous membranes, neck supple with full ROM Cardiovascular: RRR +S1/S2, no murmurs or rubs Pulmonary: Clear to auscultation bilaterally, nonlabored breathing, symmetric chest rise Abdominal: Gravid abdomen appropriate for gestation. No guarding, rebound, or tenderness noted. Extremities: trace edema, no tenderness or cyanosis noted Skin: Normal turgor, intact, warm. Negative for erythema, pallor, petechia, or lesions Neurologic: Negative for sensory or motor deficit Psychiatric: Normal affect, normal thought process, good judgment and insight, no depression or anxious mood appreciated. *Routine HEENT Exam Head: Present normocephalic and atraumatic Eye: Present EOMI, PERRL and normal accommodation; Absent conjunctival icterus, scleral injection, nystagmus or exophthalmos ENT: Present mucous membranes moist *Routine Respiratory Exam Respiratory: Present CTA bilaterally, normal respiratory effort, able to speak in complete sentences and symmetric chest movement; Absent accessory muscle use, decreased breath sounds, rales, respiratory distress, wheezes, distant breath sounds or diminished air movement *Routine Cardiovascular Exam Cardiovascular: Present RRR, Normal S1 and Normal S2; Absent murmur or gallop *Routine Abdominal Exam Abdominal: Present soft and normoactive bowel sounds; Absent tenderness, distended, rebound or guarding *Routine Rectal Exam Rectal:: deferred *Routine Genitalia Exam Genitalia:: normal female Assessment and Plan *Assessment and plan (1) Elevated TSH: Status: Acute Category: Medical Code(s): R79.89 - Other specified abnormal findings of blood chemistry (2) Obesity affecting : Status: Acute Category: Medical Code(s): O99.210 - Obesity complicating , unspecified trimester (3) Suboxone maintenance treatment complicating , antepartum: Status: Acute Category: Medical Code(s): O99.320 - Drug use complicating , unspecified trimester; F11.20 - Opioid dependence, uncomplicated (4) Encounter for induction of labor: Status: Acute Category: Medical Code(s): Z34.90 - Encounter for supervision of normal , unspecified, unspecified trimester Plan #39 weeks gestation - Suspected LGA. Growth scan on 12/27/2024 at 35 weeks and 2 days gestation: 2670 g, 5 pounds 14 ounces, 51st percentile. Appropriate growth. - Monitor vitals - Admit to L&D for induction of labor - Plan for induction with Pitocin, per protocol with [facility]OM - External FHR and TOCO monitor - Exam at rupture: /-2 - GBS neg/ Blood type: A-, antibody +, pending - Hemoglobin: 11.4, Plt: 293 - Plan for epidural anesthesia - Anticipate vaginal delivery of female infant: Rosio Chong # Buprenorphine maintenance - Continue for labor and
[2025-01-25] MEDS: LACTATED RINGERS 1000ML 1,000 ML 250 ML IV (09:36)
[2025-01-25] MEDS: BUPRENORPHINE/NALOXONE 8MG/2MG ODT 1.5 EACH SL (09:40)
[2025-01-25] MEDS: DEXTROSE 5%-LACTATED RINGERS 1,000 ML 125 ML IV (09:45)
--- NOTE | 2025-01-25 11:09 | EXP.ANES.CKL ---
[facility] Disclaimer: The information contained in this section may have been updated after the patient was seen, as this information can be updated by other users. Medical History Obesity affecting Suboxone maintenance treatment complicating , antepartum Surgical History No significant past surgical history Family History Other No significant family history Social History (Updated 01/25/25 @ 08:04 by Koki Haney RN) Smoking Status: Never smoker alcohol intake: never substance use type: denies use current occupational status: unemployed Travel in the last 8 weeks?: None [facility] Anesthesia Checklist Patient Identification Patient Identification: Arm Band and Family Structural Data Admitted From: Home Planned Operative Procedure/s: Labor Epidural Consent for Planned Operative Procedure(s) Verified: Yes Verified Documents: Surgical Consent and History and Physical NPO Status Verified Time NPO: 00:00 Additional verifications Patient : Yes Anesthesia Reactions: No Hx Blood Transfusions: No Blood Transfusion Reaction: No Cephalosporin Allergy: No Previous Colonoscopy: No Airway Assessment Mallampati Score:: Class II C-Spine Mobility Assessed: Yes TMJ Mobility Assessed: Yes Dentition: Good Dentition Neurological Assessment Level of Consciousness: Awake, Alert, Appropriate and Follows Commands Hx Seizures: No Numbness or tingling in extremities: No Anesthesia Plan Anesthesia Risk discussed: Yes ASA Class: I Anesthesia Type: Epidural Preoperative Comments Pre-Operative Comments: 39 week 3 days gestation.
--- NOTE | 2025-01-25 13:23 | P.PCN_ITS ---
Delivery Note Delivery Date:: 01/25/25 Delivery Time:: 14:38 Anesthesia Type: Epidural Was labor medically induced?: Yes Induction method: per pitocin protocol Gestational age (weeks): 39 delivered prior to 39 weeks?: No Infant Gender: Female at 1 minute: 8 at 5 minutes: 9 Delivery Procedure:: Preoperative diagnosis: 1. -0-3-1 at 39 completed this weeks gestation, vertex 2. Rh positive 3. GBS negative 4. Buprenorphine maintenance Postoperative diagnosis: 1. -0-3-1 at 39 completed this weeks gestation, vertex 2. Rh positive 3. GBS negative 4. Buprenorphine maintenance EBL: 100mL Specimen: 1. Cord blood Findings: 1. Liveborn viable female infant: Rosio. Apgars 8/9 at 1 and 5 minutes respectively. Weight pending at time of dictation 2. First degree midline perineal laceration and bilateral labial lacerations Complications: None Procedure: Nonoperative spontaneous vaginal delivery Dorothy Segal is a 29-year-old who presented this morning for induction of labor. She had Pitocin initiated followed by artificial rupture of membranes. S he received an epidural for anesthesia. She progressed to complete. With effective maternal pushing there was a nonoperative spontaneous vaginal delivery at 1438. Infant delivered in the direct OP presentation. There was no nuchal cord present. The anterior right shoulder delivered, followed by the posterior shoulder without dystocia. The body and lower extremities delivered without difficulty. The infant was bulb suctioned and was crying immediately following delivery. The was placed on the maternal abdomen and greater than 5 minutes were appreciated for delayed cord clamping. The umbilical cord was doubly clamped and cut. Cord blood was collected and sent for routine testing. The placenta delivered with cord traction and suprapubic contertraction. Pitocin was started. The uterus was firm and bleeding was minimal. The perineum, vaginal wing, cervix, and paraurethral area were inspected thoroughly. There was a first-degree midline perineal laceration as well as bilateral labial lacerations that were repaired with 2-0 Vicryl in a normal fashion. All counts were correct by nursing. Mother and were doing well and bonding upon my leaving the delivery room. Laceration:: vaginal Placental Delivery Description: Spontaneous
[2025-01-25] MEDS: OXYTOCIN/RINGERS LACTATE 30 UNITS/500 ML BAG 40 UNITS IV (14:45)
[2025-01-25] MEDS: PRENATAL MULTIVITAMIN W/IRON 1 EACH PO (17:13)
[2025-01-25] MEDS: ACETAMINOPHEN 500MG TAB 1000 MG PO ×2 (17:13→22:51)
[2025-01-25] MEDS: IBUPROFEN 400 MG TABLET 800 MG PO (17:14)
[2025-01-25] MEDS: WITCH HAZEL 40 PADS/BOX 1 EACH TP (19:41)
[2025-01-25] MEDS: SENNA 8.6MG TABLET 8.6 MG PO (19:42)
[2025-01-25] MEDS: LANOLIN CREAM 40GM TP (19:42)
[2025-01-25] MEDS: BENZOCAINE-MENTHOL SPRAY 56GM CAN TP (19:42)
[2025-01-26] MEDS: IBUPROFEN 400 MG TABLET 800 MG PO ×3 (02:41→23:04)
[2025-01-26 06:55] LABS: Hematocrit 29.8 % (37.0-47.0); Hemoglobin 9.5 g/dL (12.2-16.2); Immature Granulocytes % 0.5 %; Mean Corpuscular HGB Conc 31.9 g/dL (31.8-35.4); Mean Corpuscular Hemoglobin 28.2 pg (27.0-31.2); Mean Corpuscular Volume 88.4 fl (81-99); Nucleated Red Blood Cells % 0 %; Platelet Count 220 K/mm3 (142-424); Red Blood Count 3.37 M/mm3 (4.20-5.40); Red Cell Distribution Width-SD 42.6 fL; White Blood Count 9.9 K/mm3 (4.8-10.8)
[2025-01-26 08:11] VITALS: BP 115/56; PULSE 80; RESP 17; TEMP 36.9; O2SAT 100
[2025-01-26] MEDS: BUPRENORPHINE/NALOXONE 8MG/2MG ODT 1.5 EACH SL (08:11)
--- NOTE | 2025-01-26 10:28 | P.PN_ITS ---
Subjective *Date: 01/26/25 *Time: 10:28 Interval history: PPD # 1 s/p Feeling well. Pain controlled. Breast feeding. Lochia is appropriate. Voiding without difficulty and passing flatus. Tolerating regular diet. Denies fever/chills, chest pain and shortness of breath. No headaches, vision changes, lightheadedness/dizziness. No lower extremity swelling. Ambulating well ad jin. Medical Exam Vital signs and Labs for Last 24 Hours: Vital Signs Temp Pulse Resp BP Pulse Ox O2 Del Method 01/26/25 08:11 98.4 F 80 17 115/56 L 100 Room Air Laboratory Results - last 24 hr 01/25/25 04:59: Antibody Identification Anti-D 01/25/25 06:35: Screen Negative, Baby's Rh Status Negative 01/26/25 06:30: WBC 9.9, RBC 3.37 L, Hgb 9.5 L, Hct 29.8 L, MCV 88.4, MCH 28.2, MCHC 31.9, RDW 13.3, Plt Count 220, MPV 9.9, Neut % (Auto) 67.1, Lymph % (Auto) 24.7, [place] % (Auto) 6.7, Eos % (Auto) 0.8, Baso % (Auto) 0.2, Neut # (Auto) 6.7, Lymph # (Auto) 2.5, [place] # (Auto) 0.7, Eos # (Auto) 0.1, Baso # (Auto) 0.0 I & O for Labs for Last 24 Hours: Intake & Output 01/23/25 01/24/25 01/25/25 01/26/25 23:59 23:59 23:59 23:59 Weight 203 lb Head: Present atraumatic and normocephalic ENT: Present normal exam Neck: Present full ROM Respiratory: Present CTA bilaterally and normal respiratory effort Cardiac: Present Reg Rate and Rhythm GI: Present soft; Absent distention or tenderness Comments:: Uterine fundus firm and below umbilicus Rectal (female): Present deferred (female): Present deferred Extremities: Present full ROM Neuro: Present alert, awake and moves all extremities Assessment and Plan *Assessment and plan (1) Status post normal vaginal delivery: Status: Acute Category: Medical (2) Encounter for induction of labor: Status: Acute Category: Medical Code(s): Z34.90 - Encounter for supervision of normal , unspecified, unspecified trimester (3) Suboxone maintenance treatment complicating , antepartum: Status: Acute Category: Medical Code(s): O99.320 - Drug use complicating , unspecified trimester; F11.20 - Opioid dependence, uncomplicated (4) Obesity affecting : Status: Acute Category: Medical Code(s): O99.210 - Obesity complicating , unspecified trimester (5) Acute blood loss anemia: Status: Acute Category: Medical Code(s): D62 - Acute posthemorrhagic anemia Plan Continue routine care Encouraged increased ambulation AM Hgb 9.5 (11.4 on admission) -- Venofer 200 mg IV x 1 dose Plan d/c tomorrow and stay as guest until baby is discharged
[2025-01-26] MEDS: IRON SUCROSE COMPLEX 200 MG in 0.9 % SODIUM CHLORIDE 100 ML 220 MG IV (11:56)
--- NOTE | 2025-01-26 14:08 | PC.NURSE ---
Pt reports she is in a recovery program at [facility] in [place], [place]. Pt is appropriate with the and has everything she needs to care for the at home. Jorge Foss (pepe), pts son and Dino will reside at [address] [place] [address]. Pt is . Pts UDS and 's UDS are both negative. will likely stay until at least Tuesday to monitor OSWALDO scoring.
[2025-01-26] MEDS: ACETAMINOPHEN 500MG TAB 1000 MG PO ×2 (14:24→23:04)
[2025-01-26] MEDS: SENNA 8.6MG TABLET 8.6 MG PO (20:07)
[2025-01-27 08:10] VITALS: BP 126/67; PULSE 67; RESP 18; TEMP 36.9; O2SAT 98
[2025-01-27] MEDS: SENNA 8.6MG TABLET 8.6 MG PO (08:11)
[2025-01-27] MEDS: BUPRENORPHINE/NALOXONE 8MG/2MG ODT 1.5 EACH SL (08:12)
[2025-01-27] MEDS: ACETAMINOPHEN 500MG TAB 1000 MG PO (08:12)
[2025-01-27] MEDS: IBUPROFEN 400 MG TABLET 800 MG PO (08:12)
--- NOTE | 2025-01-27 10:37 | EXP.DC.SUM ---
General Admission date:: 01/25/25 Discharge date: 01/27/25 HPI HPI HPI: PPD # 2 s/p Feeling well. Pain controlled. Breast feeding. Lochia is appropriate. Voiding without difficulty and passing flatus. Tolerating regular diet. Denies fever/chills, chest pain and shortness of breath. No headaches, vision changes, lightheadedness/dizziness. No lower extremity swelling. Ambulating well ad jin. Hospital Course Hospital Course Hospital Course: Prudence Segal is a pleasant 29yo at 39 weeks and 3 days gestation who presented to labor and delivery for scheduled induction of labor. Her has been complicated by suboxone use. On presentation patient endorsed good movement and denies any leakage of fluid or vaginal bleeding. She had a normal spontaneous vaginal delivery on 01/25/25 at 1438. She deliverd a liveborn viable female , Rosio, weighing 7 lb 7 oz. Apgars 8/9 at 1 and 5 minutes respectively. EBL 100 mL. She did well . Pain controlled. Breast feeding. Light lochia. Voiding without difficulty and passing flatus. Tolerating regular diet. Denies fever/chills, chest pain and shortness of breath. No headaches, dizziness/lightheadedness or vision changes. Vital signs stable, afebrile. Heart regular rate and rhythm. Lungs clear to auscultation. Abdomen soft, nontender. No lower extremity swelling. Ambulating well ad jin. Normal hospital course. She was discharged to home on PPD # 2 with instructions to follow-up in the office in 2 weeks or sooner if needed. Exam Data for Last 24 hours Vital signs and Labs for Last 24 Hours: Temp Pulse Resp BP Pulse Ox O2 Del Method 98.5 F 67 18 126/67 98 Room Air 01/27/25 08:10 01/27/25 08:10 01/27/25 08:10 01/27/25 08:10 01/27/25 08:10 01/27/25 08:10 I & O for Last 24 hours: Intake & Output 01/24/25 01/25/25 01/26/25 01/27/25 23:59 23:59 23:59 23:59 Weight 203 lb Constitutional Constitutional: no acute distress and cooperative *Routine HEENT Exam Head: Present normocephalic and atraumatic Eye: Absent conjunctivae pink ENT: Present mucous membranes moist *Routine Neck Exam Neck: Present full ROM *Routine Respiratory Exam Respiratory: Present CTA bilaterally and normal respiratory effort *Routine Cardiovascular Exam Cardiovascular: Present RRR *Routine Abdominal Exam Abdominal: Present soft; Absent tenderness *Routine Rectal Exam Patient deferred: visual exam *Routine Exam Patient deferred: external exam *Routine Extremities Exam Extremities: Present full ROM; Absent edema or calf tenderness *Routine Neurological Exam Neurological: Present alert, moving all extremities and normal speech Routine Psychiatric Exam Psychiatric: Present normal affect and cooperative DS: Diagnosis Discharge Diagnosis (1) Status post normal vaginal delivery: Status: Acute (2) Encounter for induction of labor: Status: Acute Code(s): Z34.90 - Encounter for supervision of normal , unspecified, unspecified trimester (3) Suboxone maintenance treatment complicating , antepartum: Status: Acute Code(s): O99.320 - Drug use complicating , unspecified trimester; F11.20 - Opioid dependence, uncomplicated (4) Obesity affecting : Status: Acute Code(s): O99.210 - Obesity complicating , unspecified trimester Qualifiers: Obesity type affecting : unspecified obesity Trimester: unspecified trimester Qualified Code(s): O99.210 - Obesity complicating , unspecified trimester (5) Acute blood loss anemia: Status: Acute Code(s): D62 - Acute posthemorrhagic anemia Meds Home Medications and Allergies Home Medications ?Medication ?Instructions ?Recorded ?Confirmed ?Type vits no.126-ferrous fum 1 tab PO DAILY 08/31/24 01/25/25 History 28 mg iron-folic acid 800 mcg tablet (Classic ) buprenorphine 8 mg-naloxone 2 mg 1.5 tab sublingual DAILY 10/31/24 01/25/25 History sublingual tablet ferrous sulfate 325 mg (65 mg 325 mg PO DAILY #30 tabs 11/27/24 01/25/25 Rx iron) tablet New Prescriptions to Start Prescriptions: Allergies Allergy/AdvReac Type Severity Reaction Status Date / Time Penicillins Allergy Intermediate Rash Verified 01/17/25 11:44 Discharge Plan Disposition Patient Disposition: Home, Self-Care Condition: Good Discharge Order Discharge Orders: Discharge Order (Routine); Ordered 01/27/25 Ordered By: Fariba Monk Follow up Plan Follow up with: Mariaelena Martinez DO [Staff Physician, [employer]] - 02/08/25 1:00 pm Prescriptions/Medication Reconciliation: Continued buprenorphine-naloxone 8-2 mg tablet, sublingual 1.5 tab sublingual DAILY Classic 28 mg iron- 800 mcg tablet 1 tab PO DAILY ferrous sulfate 325 mg (65 mg iron) tablet 325 mg PO DAILY Qty: 30 0RF Problem Reconciliation Problems Reviewed?: Yes Patient Discharge Instructions ACTIVITY: Limited activity DIET: continue same diet and regular diet Additional Instructions: Congratulations!! Discharge: 1. Take 800 mg Ibuprofen every 8 hours as needed for pain. You can also take 500-1000 mg of Tylenol in between doses, every 6-8 hours. 2. Nothing in the vagina for 6 weeks - no intercourse, douching or tampons. No tub baths/hot tubs or swimming pools 3. Reasons to return to L&D or call On-Call doctor - fever (greater than 100.4) - heavy vaginal bleeding (soaking through 1 pad in less than 2 hours) - vaginal discharge (malodorous and/or purulent) - severe headaches not resolved by medication or rest and leg tenderness/edema 4. depression/blues - Normal to feel anxious/overwhelmed for first 2 weeks - Talk to your doctor if: severe anxiety, trouble bonding with baby, withdrawing from other family members, thoughts of harming yourself or others Fariba Monk DO [facility] [phone] Patient Instructions: Depression, Hemorrhage, DI for Labor and Delivery, Vaginal , DI for Pre-eclampsia, [facility] Post Discharge Instructions Print Language: [place] Providers Primary Care Provider: Provider,Referral Admit Provider: Mariaelena Martinez Attending Provider: Mariaelena Martinez
--- NOTE | 2025-01-28 14:51 | SW/DCPLANNER ---
Addendum entered by Nathaly Coffman 01/31/25 07:56: Infant cord screen positive for Buprenorphine. Patient is established w/ [facility]. Original Note: I received a consult on this patient regarding: suboxone during . Patient delivered female (Dino Zamudio) on 01/25/25. 's father (Jackson Zamudio 06/17/92) was present at the time of my visit. Patient, Jorge, infant and other child (Corona Koroma 12/24/15) will reside at [address] [place] [address]. Patient reports no past Social Service involvement. Patient is currently enrolled w/ services at [facility] in [facility]. Patient will establish w/ WIC. Patient has the following items at home: crib, car seat, clothing, diapers, and will be breast feeding. PED MD will be Dr Lawson and patient will have transportation to all follow up appointments. Per OB staff patient is appropriate w/ . Patient will discharge home later today pending infant BM. cord has been sent off and urine drug screen was negative. Patient did not have a UDS collected per nursing staff.
== END 2025-01-27 12:15 | disposition home or self-care (01) | DRG 806 ==
PROVIDERS: Admitting Provider Obstetrics & Gynecology; Visit Provider Obstetrics & Gynecology
DX: O99.324 Drug use complicating childbirth (principal); D62 Acute posthemorrhagic anemia; Z37.0 Single live birth; F11.20 Opioid dependence, uncomplicated; Z3A.39 39 weeks gestation of pregnancy; O99.214 Obesity complicating childbirth; O90.81 Anemia of the puerperium; O70.0 First degree perineal laceration during delivery; O75.89 Other specified complications of labor and delivery; R79.89 Other specified abnormal findings of blood chemistry; Z88.0 Allergy status to penicillin; Z23 Encounter for immunization
CPT/HCPCS: 36415; 51702; 59025; 85025; 85461; 86592; 86850; 86870; 94761; J0574; J1756; J7120; J7121